=== PATIENT | female | born 1970 | race African-American/Black ===

== ENCOUNTER 2023-02-15 18:26 | Emergency (ER) | payer OTHER ==
[2023-02-15] MEDS ORDERED: ACETAMINOPHEN 1000 MG/100 ML BAG IVPB ONE (18:44)
[2023-02-15] MEDS ORDERED: MAG HYDROX/AL HYDROX/SIMETH 30 ML UNIT-DOSE CUP PO ONE (18:44)
[2023-02-15] MEDS ORDERED: FAMOTIDINE 20 MG/50 ML IVPB 20 MG/50 ML MG IVPB ONE ×2 (18:44→19:21)
[2023-02-15] MEDS ORDERED: ONDANSETRON 4 MG/2 ML VIAL IVPUSH ONE (18:44)
[2023-02-15] MEDS ORDERED: SODIUM CHLORIDE 0.9% 500 ML INFUS.BAG IV ONE (18:45)
[2023-02-15 18:51] VITALS: BP 119/84; PULSE 70; RESP 18; TEMP 98.4; BMI 23.3
[2023-02-15 19:15] LABS: HEMATOCRIT 40.9 % (32.4-45.2); HEMOGLOBIN 13.7 G/dL (10.7-15.3); MCH 31.7 pg (25.7-33.7); MCHC 33.5 g/dl (32.0-36.0); MEAN CELL VOLUME 94.6 fl (80-96); MEAN PLT VOLUME 7.5 fl (7.5-11.1); PLATELET COUNT 254.6 10^3/uL (134-434); RBC 4.32 10^6/uL (3.60-5.2); RDW 14.2 % (11.6-15.6)
[2023-02-15] MEDS ORDERED: ONDANSETRON 4 MG/2 ML VIAL ONE (19:21)
[2023-02-15] MEDS ORDERED: MAG HYDROX/AL HYDROX/SIMETH 30 ML UNIT-DOSE CUP ONE (19:22)
[2023-02-15] MEDS ORDERED: ACETAMINOPHEN INJECTION 100 ML IVPB ONE (19:22)
[2023-02-15 19:50] LABS: ALBUMIN 4.4 g/dl (3.4-5.0); BLOOD UREA NITROGEN 8.8 mg/dl (7-18); CALCIUM 9.2 mg/dl (8.5-10.1); CREATININE 0.8 mg/dl (0.6-1.3); POTASSIUM 4.4 mmol/L (3.5-5.1); SGOT/AST 27.5 U/L (15-37); SGPT/ALT 18.7 U/L (7-52); TOT PROT 6.8 g/dl (6.4-8.2)
[2023-02-15 20:04] LABS: EPITHELIAL CELLS FEW /hpf
[2023-02-15 21:32] LABS: BILIRUBIN,TOTAL 0.5 mg/dL (0.2-1)
== END 2023-02-15 21:02 | disposition home or self-care (01) ==
LOC: FER 18:26
PROC: 3E033GC Introduction of Other Therapeutic Substance into Peripheral Vein, Percutaneous Approach (ICD-10-PCS; principal; 2023-02-15)
PROC: 3E033NZ Introduction of Analgesics, Hypnotics, Sedatives into Peripheral Vein, Percutaneous Approach (ICD-10-PCS; 2023-02-15)
PROC: 3E033GC Introduction of Other Therapeutic Substance into Peripheral Vein, Percutaneous Approach (ICD-10-PCS; 2023-02-15)
DX: R10.13 Epigastric pain (principal); R11.2 Nausea with vomiting, unspecified
CPT/HCPCS: 36415; 76705-TC; 80053; 81003; 81015; 84703; 85027; 87086; 99284-25

== ENCOUNTER 2023-07-01 17:59 | Emergency (ER) | payer OTHER ==
[2023-07-01 18:09] VITALS: BP 117/68; PULSE 69; RESP 18; TEMP 97.8; BMI 23.6
== END 2023-07-01 18:50 | disposition home or self-care (01) ==
LOC: FER 17:59
DX: R30.0 Dysuria (principal); R39.11 Hesitancy of micturition; N39.0 Urinary tract infection, site not specified
CPT/HCPCS: 81003; 84703; 87070; 87086; 99283-25

== ENCOUNTER 2023-07-14 18:00 | Emergency (ER) | payer OTHER ==
[2023-07-14 18:06] VITALS: BP 124/88; PULSE 76; RESP 18; TEMP 98.4; BMI 23.6
[2023-07-14] MEDS ORDERED: IBUPROFEN 600 MG TABLET (FP) PO ONE ×2 (18:14→18:22)
[2023-07-14] MEDS ORDERED: PSEUDOEPHEDRINE HCL 30 MG TABLET PO ONE (18:17)
[2023-07-14] MEDS ORDERED: PSEUDOEPHEDRINE HCL 30 MG TABLET ONE (18:22)
== END 2023-07-14 18:48 | disposition home or self-care (01) ==
LOC: FER 18:00
DX: H92.02 Otalgia, left ear (principal); R05.9 Cough, unspecified; R09.81 Nasal congestion; R51.9 Headache, unspecified; J06.9 Acute upper respiratory infection, unspecified; J32.9 Chronic sinusitis, unspecified; Z20.822 Contact with and (suspected) exposure to COVID-19
CPT/HCPCS: 0241U-QW; 87651; 99283-25

== ENCOUNTER 2023-07-26 20:38 | Emergency (ER) | payer OTHER ==
[2023-07-26 20:47] VITALS: RESP 16; TEMP 97.6; BMI 23.3
[2023-07-26 21:54] VITALS: BP 129/92; PULSE 80
== END 2023-07-26 22:07 | disposition home or self-care (01) ==
LOC: FER 20:38
DX: S70.11XA Contusion of right thigh, initial encounter (principal); S70.12XA Contusion of left thigh, initial encounter; M25.561 Pain in right knee; M25.461 Effusion, right knee; R53.1 Weakness; W10.8XXA Fall (on) (from) other stairs and steps, initial encounter
CPT/HCPCS: 99282-25

== ENCOUNTER 2023-07-28 16:39 | Emergency (ER) | payer OTHER ==
[2023-07-28 16:55] VITALS: BP 117/72; PULSE 82; RESP 18; TEMP 97.8; BMI 23.3
[2023-07-28] MEDS ORDERED: ACETAMINOPHEN 325 MG TABLET (FP) ONE (18:30)
[2023-07-28] MEDS ORDERED: ACETAMINOPHEN 325 MG TABLET (FP) PO ONE (18:46)
== END 2023-07-28 18:50 | disposition home or self-care (01) ==
LOC: FER 16:39
DX: S70.12XA Contusion of left thigh, initial encounter (principal); S70.11XA Contusion of right thigh, initial encounter; M54.6 Pain in thoracic spine; R42 Dizziness and giddiness; S06.0X0A Concussion without loss of consciousness, initial encounter; W10.8XXA Fall (on) (from) other stairs and steps, initial encounter; X50.1XXA Overexertion from prolonged static or awkward postures, initial encounter; Y99.0 Civilian activity done for income or pay
CPT/HCPCS: 93005; 99283-25